=== PATIENT | female | born 1985 | race Caucasian/White ===

== ENCOUNTER 2018-03-21 06:26 | Emergency (ER) | payer OTHER ==
[2018-03-21] MEDS: SOD CHLORIDE 0.9% 1,000 ML IV (07:09)
[2018-03-21] MEDS: ONDANSETRON 4 MG INJ IV (07:09)
[2018-03-21] MEDS: KETOROLAC 30 MG INJ IV (07:10)
[2018-03-21] MEDS: FAMOTIDINE 20 MG INJ IV (07:10)
[2018-03-21 07:28] LABS: ADD MAN DIFF? NO
[2018-03-21 07:32] LABS: BASOPHILS % 0.4 % (0.0-2.0); EOSINOPHILS # 0.1 10^3/ul (0.0-0.5); EOSINOPHILS % 1.6 % (0.0-7.0); HEMATOCRIT 37.5 % (37.0-47.0); HEMOGLOBIN 12.2 g/dl (12.0-16.0); LYMPHOCYTES # 2.3 10^3/ul (0.8-2.9); MEAN CORPUSCULAR HEMOGLOBIN 27.6 pg (29.0-33.0); MEAN CORPUSCULAR HGB CONC 32.5 g/dl (32.0-37.0); MEAN CORPUSCULAR VOLUME 84.8 fl (82.0-101.0); MEAN PLATELET VOLUME 10.5 fl (7.4-10.4); MONOCYTE # 0.4 10^3/ul (0.3-0.9); MONOCYTES % 6.5 % (0.0-11.0); NEUTROPHIL # 2.7 10^3/ul (1.6-7.5); NEUTROPHILS % 49.3 % (39.0-77.0); PLATELET COUNT 318 10^3/UL (140-415); RED BLOOD COUNT 4.42 10^6/ul (4.20-5.40); RED CELL DISTRIBUTION WIDTH 13.9 % (11.5-14.5)
[2018-03-21 07:32] LABS: WHITE BLOOD COUNT 5.6 10^3/ul (4.8-10.8)
[2018-03-21 07:39] LABS: ADD UMIC YES; UR ASCORBIC ACID NEGATIVE (NEGATIVE); UR BACTERIA FEW /HPF (NONE SEEN); UR BILIRUBIN (Dip) NEGATIVE (NEGATIVE); UR BLOOD (Dip) 3+ mg/dL (NEGATIVE); UR CALCIUM OXALATE CRYSTAL FEW /HPF (NONE SEEN); UR CLARITY CLEAR (CLEAR); UR COLOR STRAW (YELLOW); UR GLUCOSE (Dip) NEGATIVE (NEGATIVE); UR KETONES (Dip) NEGATIVE (NEGATIVE); UR LEUKOCYTE ESTERASE (Dip) NEGATIVE Leu/ul (NEGATIVE); UR NITRITE (Dip) NEGATIVE (NEGATIVE); UR RBC 132 /HPF (0-5); UR SPECIFIC GRAVITY (Dip) 1.005 (1.003-1.030); UR TOTAL PROTEIN (Dip) NEGATIVE (NEGATIVE); UR UROBILINOGEN (Dip) NEGATIVE (NEGATIVE); UR WBC 5 /HPF (0-5)
[2018-03-21 07:51] LABS: ALANINE AMINOTRANSFERASE 21 IU/L (13-69); ALBUMIN 3.7 g/dl (3.3-4.9); ALBUMIN/GLOBULIN RATIO 1.15; ALKALINE PHOSPHATASE 89 IU/L (42-121); ANION GAP 11 (5-13); ASPARTATE AMINO TRANSFERASE 28 IU/L (15-46); BILIRUBIN,INDIRECT 0.1 mg/dl (0-1.1); BILIRUBIN,TOTAL 0.1 mg/dl (0.2-1.3); BLOOD UREA NITROGEN 10 mg/dl (7-20); CALCIUM 9.2 mg/dl (8.4-10.2); CARBON DIOXIDE 24 mmol/L (21-31); CHLORIDE 107 mmol/L (97-110); CREATININE 0.68 mg/dl (0.44-1.00); Estimated GFR > 60 mL/min (>60); GLUCOSE 84 mg/dl (70-220); LIPASE 91 U/L (23-300); POTASSIUM 4.4 mmol/L (3.5-5.1); SODIUM 142 mmol/L (135-144); TOTAL PROTEIN 6.9 g/dl (6.1-8.1)
[2018-03-21] MEDS: IOHEXOL 300MG/ML 150 ML BTL (10:10)
[2018-03-21] MEDS: SOD CHLORIDE 0.9% 100 ML (10:10)
== END 2018-03-21 10:57 | disposition home or self-care (01) ==
LOC: FTE 06:26
DX: R19.06 Epigastric swelling, mass or lump (principal)
CPT/HCPCS: 36415; 74177; 76705; 80053; 81001; 81025; 83690; 84703; 85025; 96361; 96374; 96375; 99285-25

== ENCOUNTER 2018-03-27 06:18 | Day surgery (SDC) | payer OTHER ==
[2018-03-27] MEDS ORDERED: LIDOCAINE 2% (SDV) 5 ML INJ (07:38)
[2018-03-27] MEDS ORDERED: MEPERIDINE /PF (100 MG/2 ML) AMPULE (07:38)
[2018-03-27] MEDS ORDERED: PROPOFOL 20 ML (07:38)
[2018-03-27] MEDS ORDERED: ONDANSETRON 4 MG INJ (07:42)
[2018-03-27] MEDS ORDERED: METOCLOPRAMIDE 10 MG INJ (07:42)
[2018-03-27] MEDS ORDERED: OXYCODONE/ACETAMINOPHEN (5/325) TAB PO ×2 (09:00)
[2018-03-27] MEDS ORDERED: DIPHENHYDRAMINE 50 MG INJ IV (09:00)
[2018-03-27] MEDS ORDERED: METOCLOPRAMIDE 10 MG INJ IV (09:00)
[2018-03-27] MEDS ORDERED: HYDROmorphONE 1 MG/5 ML IV SYRINGE IV ×2 (09:00)
[2018-03-27] MEDS ORDERED: MEPERIDINE 25 MG INJ IV (09:00)
[2018-03-27] MEDS ORDERED: MIDAZOLAM 1 MG/ML 2 ML INJ IV (09:00)
[2018-03-27] MEDS ORDERED: ONDANSETRON 4 MG INJ IV (09:00)
[2018-03-27] MEDS ORDERED: FENTAnyl 50 MCG/ML VIAL IV ×2 (09:00)
[2018-03-27] MEDS: HYDROmorphONE 1 MG/5 ML IV SYRINGE IV (09:19)
[2018-03-27] MEDS: FENTAnyl 50 MCG/ML VIAL IV (09:19)
== END 2018-03-27 10:51 | disposition home or self-care (01) ==
LOC: SDS 06:18
DX: N84.0 Polyp of corpus uteri (principal)
CPT/HCPCS: 58558; 88305